=== PATIENT | female | born 1960 | race Caucasian/White ===

== ENCOUNTER → 2018-10-05 | Outpatient (CLI) | payer OTHER ==
--- NOTE | 2018-10-05 16:24 | PCVCIMAG ---
APPROVED REPORT Study performed: 10/05/2018 15:17:48 Exam: Stress Echocardiogram Indication: Biscupid aortic valve, abnormal calcium score Patient Location: Echo lab Stress Nurse: Lyndsey Stewart RN Status: routine Ht: 5 ft 6 in HR: 73 bpm BP: 124/70 mmHg Rhythm: NSR Medical History Medical History: Biscuspid Aortic Valve Exercise History: Physically active Procedure The patient underwent an Exercise Stress Test using the Sha Protocol. Blood pressure, heart rate, and EKG were monitored. An Echocardiogram was performed by data communications technician in four stages in quad fashion. At peak stress, four selected images were obtained and placed side by side with resting images for comparison. Stress Test Details Stress Test: Exercise stress testing was performed using a Sha protocol. HR Resting HR: 73 bpmMax Heart Rate (APMHR): 160 bpm Max HR Achieved: 151 bpmTarget HR (85% APMHR): 136 bpm % of APMHR: 94 Recovery HR: 86 bpm HR response to stress: Normal HR response to stress BP Resting BP: 124/70 mmHg Max BP: 170/80 mmHg ECG Resting ECG: Sinus Rhythm Stress ECG: Sinus Rhythm Recovery ECG: Sinus Rhythm Clinical Reason for Termination: Maximal effort Exercise duration: 9 min 46 sec Highest Stage Achieved: Stage 3: 3.4 mph at 14% grade. Exercise capacity: 12.60 METs Overall Exercise Capacity for Age: Normal Pre-Stress Echo The resting Echocardiogram showed normal left ventricular contractility with an estimated Ejection Fraction of about 55-60%. Normal wall motion in all segments on baseline images. Post-Stress Echo The stress Echocardiogram showed normal left ventricular contractility with an estimated Ejection Fraction of about 60-65%. Normal augmentation of wall motion in all segments on post stress images. Clinical No clinical or ECG evidence for ischemia. Conclusion Clinical Response: Non-ischemic Exercise Capacity: Average Stress ECG Response: Non-ischemic Stress Echo Images: Non-ischemic The left ventricle is normal in size and wall thickness in both the rest and stress images. Other Information Study Quality: Good <Conclusion> The left ventricle is normal in size and wall thickness in both the rest and stress images.
--- NOTE | 2018-10-05 16:25 | PCVCIMAG ---
APPROVED REPORT Study performed: 10/05/2018 14:30:05 EXAM: Comprehensive 2D, Doppler, and color-flow Echocardiogram Patient Location: Echo lab Status: routine BSA: 1.82 HR: 60 bpmBP: 124/70 mmHg Rhythm: NSR Other Information Study Quality: Excellent Indications Bicuspid Aortic Valve. 2D Dimensions IVSd: 10.72 (7-11mm)LVOT Diam: 22.08 (18-24mm) LVDd: 40.24 mm PWd: 8.85 (7-11mm)Ascending Ao: 36.24 (22-36mm) LVDs: 25.69 (25-40mm) Left Atrium: 33.77 (27-40mm) Aortic Root: 28.96 mm LV Single Plane 4CH: 58.27 % Volumes Left Atrial Volume (Systole) Single Plane 4CH: 43.22 mLSingle Plane 2CH: 45.55 mL LA ESV Index: 25.00 mL/m2 Aortic Valve AoV Peak Avni.: 2.63 m/s AO Peak Gr.: 27.67 mmHgLVOT Max P.78 mmHg AO Mean Gr.: 16.44 mmHgLVOT Mean P.19 mmHg AO V2 Mean: 1.93 m/sLVOT Max V: 0.97 m/s AO V2 VTI: 63.57 cmLVOT Mean V: 0.69 m/s ROSETTA (VTI): 1.43 [id number] V1 VTI: 23.74 cm ROSETTA Vmax: 1.41 cm2 SV (LVOT): 90.82 mL Mitral Valve E/A Ratio: 1.2 MV Decel. Time: 220.87 ms MV E Max Avni.: 0.93 m/s MV A Avni.: 0.79 m/s IVRT: 89.97 ms TDI E/Lateral E': 23.25E/Medial E': 18.60 Medial E' Avni.: 0.05 m/s Lateral E' Avni.: 0.04 m/s Pulmonary Vein P Vein S: 0.64 m/sP Vein A: 0.30 m/s P Vein D: 0.38 m/sP Vein A Dur.: 93.4 msec P Vein S/D Ratio: 1.68 Tricuspid Valve TR Peak Avni.: 2.17 m/s TR Peak Gr.: 18.84 mmHg Left Ventricle The left ventricle is normal size. There is normal LV segmental wall motion. There is normal left ventricular wall thickness. Left ventricular systolic function is normal. The left ventricular ejection fraction is within the normal range. LVEF is 60-65%. The left ventricular diastolic function is normal. Right Ventricle The right ventricle is normal size. The right ventricular systolic function is normal. Atria The left atrium size is normal. The right atrium size is normal. Aortic Valve Biscuspid aortic valve. No aortic regurgitation is present. Peak gradient is 28mmHg. Mean gradient is 17mmHg. Valve area is 1.2cm2. Mitral Valve The mitral valve is normal in structure. There is no mitral valve regurgitation noted. No evidence of mitral valve stenosis. Tricuspid Valve The tricuspid valve is normal in structure. Trace tricuspid regurgitation. Pulmonic Valve The pulmonary valve is normal in structure. There is no pulmonic valvular regurgitation. Great Vessels The aortic root is normal in size. IVC is normal in size and collapses >50% with inspiration. Pericardium There is no pericardial effusion. <Conclusion> The left ventricle is normal size. LVEF is 60-65%. The left ventricular diastolic function is normal. The right ventricle is normal size. The left atrium size is normal. Biscuspid aortic valve. Peak gradient is 28mmHg. Mean gradient is 17mmHg. Valve area is 1.2cm2. There is no mitral valve regurgitation noted. Trace tricuspid regurgitation. The aortic root is normal in size. There is no pericardial effusion.
== END | disposition home or self-care (01) ==
LOC: PCVCIMAG 15:01
PROVIDERS: ATTEND Family Medicine
DX: R93.1 Abnormal findings on diagnostic imaging of heart and coronary circulation (principal); E78.5 Hyperlipidemia, unspecified; I35.1 Nonrheumatic aortic (valve) insufficiency; Z68.27 Body mass index [BMI] 27.0-27.9, adult
CPT/HCPCS: 93306; 93351

== ENCOUNTER → 2019-11-19 | Outpatient (CLI) | payer BC, OTHER ==
--- NOTE | 2019-11-19 16:59 | PCVCIMAG ---
APPROVED REPORT Study performed: 11/19/2019 13:12:03 EXAM: Comprehensive 2D, Doppler, and color-flow Echocardiogram Patient Location: Echo lab Status: routine BSA: 1.89 HR: 61 bpmBP: 122/74 mmHg Rhythm: NSR Other Information Study Quality: Adequate Risk Factors: Cardiac Risk Factors: Hyperlipidemia Indications CAD bicuspid aortic valve 2D Dimensions IVSd: 10.85 (7-11mm)LVOT Diam: 22.00 (18-24mm) LVDd: 41.26 mm PWd: 9.78 (7-11mm)Ascending Ao: 37.06 (22-36mm) LVDs: 31.70 (25-40mm) Left Atrium: 34.94 (27-40mm) Aortic Root: 34.54 mm LV Single Plane 4CH: 56.73 % LV Single Plane 2CH: 61.11 % Biplane EF: 59.8 % Volumes Left Atrial Volume (Systole) Single Plane 4CH: 43.88 mLSingle Plane 2CH: 87.16 mL LA ESV Index: 36.00 mL/m2 Aortic Valve AoV Peak Avni.: 2.47 m/s AO Peak Gr.: 24.39 mmHgLVOT Max P.01 mmHg AO Mean Gr.: 12.56 mmHgLVOT Mean P.70 mmHg AO V2 Mean: 1.67 m/sLVOT Max V: 0.87 m/s AO V2 VTI: 59.83 cmLVOT Mean V: 0.63 m/s ROSETTA (VTI): 1.41 [id number] V1 VTI: 22.16 cm ROSETTA Vmax: 1.33 cm2 SV (LVOT): 84.17 mL Mitral Valve E/A Ratio: 1.5 MV Decel. Time: 241.59 ms MV E Max Avni.: 0.75 m/s MV A Avni.: 0.49 m/s IVRT: 96.89 ms Pulmonary Valve PV Peak Avni.: 0.84 m/sPV Peak Gr.: 2.84 mmHg Pulmonary Vein P Vein S: 0.29 m/sP Vein A: 0.32 m/s P Vein D: 0.37 m/sP Vein A Dur.: 131.5 msec P Vein S/D Ratio: 0.78 Tricuspid Valve TR Peak Avni.: 2.32 m/s TR Peak Gr.: 21.56 mmHg Left Ventricle The left ventricle is normal size. There is normal LV segmental wall motion. There is normal left ventricular wall thickness. Left ventricular systolic function is normal. The left ventricular ejection fraction is within the normal range. LVEF is 60%. Grade II - pseudonormal filling dynamics. Right Ventricle The right ventricle is normal size. The right ventricular systolic function is normal. Atria Left atrium is mildly dilated. The right atrium size is normal. Aortic Valve The aortic valve is mildly sclerotic. The aortic valve is bicuspid. No aortic regurgitation is present. There is mild valvular aortic stenosis. Calculated aortic valve area is 1.3 cm2 with maximum pressure gradient of 24 mmHg and mean pressure gradient of 13 mmHg. Mitral Valve The mitral valve is normal in structure. Trace mitral regurgitation. No evidence of mitral valve stenosis. Tricuspid Valve The tricuspid valve is normal in structure. Mild tricuspid regurgitation with PAP of 29 mmHg. Pulmonic Valve The pulmonary valve is normal in structure. There is no pulmonic valvular regurgitation. Great Vessels The aortic root is normal in size. IVC is normal in size and collapses >50% with inspiration. Pericardium There is no pericardial effusion. There is no pleural effusion. <Conclusion> The left ventricle is normal size. LVEF is 60%. Grade II - pseudonormal filling dynamics. The right ventricle is normal size. Left atrium is mildly dilated. The aortic valve is mildly sclerotic. The aortic valve is bicuspid. There is mild valvular aortic stenosis. Calculated aortic valve area is 1.3 cm2 with maximum pressure gradient of 24 mmHg and mean pressure gradient of 13 mmHg. Trace mitral regurgitation. Mild tricuspid regurgitation with PAP of 29 mmHg. The aortic root is normal in size. There is no pericardial effusion.
== END | disposition home or self-care (01) ==
LOC: PCVCIMAG 13:43
PROVIDERS: ATTEND Internal Medicine Cardiovascular Disease
DX: I08.2 Rheumatic disorders of both aortic and tricuspid valves (principal); I25.10 Atherosclerotic heart disease of native coronary artery without angina pectoris
CPT/HCPCS: 93306